=== PATIENT | female | born 1945 | race Caucasian/White ===

== ENCOUNTER → 2017-04-18 | Outpatient (REF) | payer MEDICARE, BC ==
[2017-04-18 12:51] LABS: MEAN CORPUSCULAR HEMOGLOBIN 31.7 pg (27.0-33.0); MEAN CORPUSCULAR HGB CONC 33.8 g/dl (32.0-36.5); MEAN CORPUSCULAR VOLUME 93.8 fl (80.0-96.0); RED CELL DISTRIBUTION WIDTH 13.2 % (11.5-14.5)
[2017-04-18 14:43] LABS: ALBUMIN 3.7 GM/DL (3.2-5.2); ALBUMIN/GLOBULIN RATIO 1.09 (1.00-1.93); ALKALINE PHOSPHATASE 111 U/L (45-117); ALT/SGPT 32 U/L (12-78); ANION GAP 9 MEQ/L (8-16); AST/SGOT 20 U/L (15-37); BILIRUBIN,TOTAL 0.4 MG/DL (0.2-1.0); BLOOD UREA NITROGEN 14 MG/DL (7-18); CALCIUM LEVEL 9.1 MG/DL (8.8-10.2); CARBON DIOXIDE LEVEL 25 MEQ/L (21-32); CHLORIDE LEVEL 107 MEQ/L (98-107); CHOLESTEROL LEVEL 304 MG/DL (<200); CREATININE FOR GFR 1.18 MG/DL (0.55-1.02); GLOMERULAR FILTRATION RATE 48.2 (>39); GLUCOSE, FASTING 93 MG/DL (83-110); POTASSIUM SERUM 4.2 MEQ/L (3.5-5.1); SODIUM LEVEL 141 MEQ/L (136-145); TOTAL PROTEIN 7.1 GM/DL (6.4-8.2); TRIGLYCERIDES LEVEL 477 MG/DL (<150)
== END ==
LOC: M SFHCPLAZ 10:00
PROVIDERS: ATTEND Family Medicine
DX: N18.3 Chronic kidney disease, stage 3 (moderate) (principal); I12.9 Hypertensive chronic kidney disease with stage 1 through stage 4 chronic kidney disease, or unspecified chronic kidney disease; E78.5 Hyperlipidemia, unspecified; E55.9 Vitamin D deficiency, unspecified

== ENCOUNTER → 2017-05-03 | Outpatient (CLI) | payer MEDICARE, BC ==
--- NOTE | 2017-05-03 15:31 | REP ---
Clinical: Followup renal cyst. Comparison: 08/11/2014, 03/11/2016. Technique: Real time kelly scale ultrasound examination using curved array transducer. Findings: The bilateral kidneys are relatively normal in contour, size, echogenicity, and reniform shape without hydronephrosis, nephrolithiasis, or mass lesion. Right kidney measures 9.3 x 5.2 x 3.3 cm and includes a 1.7 x 1.0 x 1.6 cm cyst in the midpole which is only minimally decreased in size from prior examination. The previously identified large lower pole right renal cyst on 2015 is no longer visible. The left kidney measures 10.6 x 4.4 x 4.4 cm without cyst. The bladder is incompletely distended and grossly unremarkable. Impression: Single right renal cyst minimally decreased in size compared to prior examination. Signed by Miller Hermosillo MD 05/03/2017 03:22 P
== END ==
LOC: M RAD 14:08
PROVIDERS: ATTEND Family Medicine
DX: N28.1 Cyst of kidney, acquired (principal)

== ENCOUNTER → 2017-05-15 | Outpatient (CLI) | payer MEDICARE, BC ==
--- NOTE | 2017-05-15 14:29 | REPMRS ---
Patient History The patient states she has not had a clinical breast exam in over a year. Patient is postmenopausal and has history of other cancer at age 44. Family history of ovarian cancer in paternal aunt and breast cancer in paternal aunt at age 50 or over. Took hormonal contraceptives for 5 years. Took estrogen for 20 years. Took progesterone for 20 years. Digital Woman Screen Mammo: May 15, 2017 - Exam #: [id number] Bilateral CC and MLO view(s) were taken. Technologist: Izabel Foster, Technologist Prior study comparison: April 05, 2016, digital woman screen mammo performed at [facility]. March 25, 2015, digital woman screen mammo performed at [facility]. October 28, 2013, bilateral bilat screen digital mammo, performed at [facility] ([facility]). FINDINGS: The breast tissue is heterogeneously dense. This may lower the sensitivity of mammography. There is a moderate amount of heterogeneously dense fibroglandular tissue which is fairly symmetric. There is no interval development of dominant mass, architectural distortion, or clustered microcalcification typical of malignancy. There has been no change in the appearance of the mammogram from the prior studies. ASSESSMENT: BI-RADS/ACR category 1 mammogram. Negative. Recommendation Routine screening mammogram of both breasts in 1 year (for women over age 40). This mammogram was interpreted with the aid of an FDA-approved computer-aided dectection system. Electronically Signed By: Chadwick Palencia MD 05/15/17 [id number]
== END ==
LOC: M WHC 12:58
PROVIDERS: ATTEND Family Medicine
DX: Z12.31 Encounter for screening mammogram for malignant neoplasm of breast (principal); R92.8 Other abnormal and inconclusive findings on diagnostic imaging of breast; Z78.0 Asymptomatic menopausal state; Z92.0 Personal history of contraception; Z79.890 Hormone replacement therapy

== ENCOUNTER → 2017-10-09 | Outpatient (REF) | payer MEDICARE, BC | LOC: M SFHCADAM 10:24 | PROVIDERS: ATTEND Family Medicine | DX: E78.5 Hyperlipidemia, unspecified (principal); Z79.899 Other long term (current) drug therapy ==

== ENCOUNTER → 2017-10-19 | Outpatient (REF) | payer MEDICARE, BC ==
[2017-10-19 20:32] LABS: ALBUMIN/GLOBULIN RATIO 1.18 (1.00-1.93); ALKALINE PHOSPHATASE 102 U/L (45-117); ALT/SGPT 27 U/L (12-78); ANION GAP 7 MEQ/L (8-16); AST/SGOT 19 U/L (7-37); BILIRUBIN,TOTAL 0.3 MG/DL (0.2-1.0); BLOOD UREA NITROGEN 18 MG/DL (7-18); CALCIUM LEVEL 9.4 MG/DL (8.8-10.2); CARBON DIOXIDE LEVEL 28 MEQ/L (21-32); CHLORIDE LEVEL 107 MEQ/L (98-107); CHOLESTEROL LEVEL 318 MG/DL (<200); CREATININE FOR GFR 1.16 MG/DL (0.55-1.02); GLOMERULAR FILTRATION RATE 49.2 (>39); GLUCOSE, FASTING 91 MG/DL (83-110); POTASSIUM SERUM 4.2 MEQ/L (3.5-5.1); SODIUM LEVEL 142 MEQ/L (136-145); TOTAL PROTEIN 7.4 GM/DL (6.4-8.2); TRIGLYCERIDES LEVEL 527 MG/DL (<150); URIC ACID 10.1 MG/DL (2.6-6.0)
== END ==
LOC: M SFHCADAM 14:03
PROVIDERS: ATTEND Family Medicine
DX: E78.5 Hyperlipidemia, unspecified (principal); M35.00 Sjogren syndrome, unspecified

== ENCOUNTER → 2018-02-26 | Outpatient (CLI) | payer MEDICARE, BC ==
[2018-02-26 18:16] LABS: ALBUMIN 3.9 GM/DL (3.2-5.2); ALBUMIN/GLOBULIN RATIO 1.03 (1.00-1.93); ALKALINE PHOSPHATASE 128 U/L (45-117); ALT/SGPT 27 U/L (12-78); ANION GAP 11 MEQ/L (8-16); AST/SGOT 20 U/L (7-37); BILIRUBIN,TOTAL 0.4 MG/DL (0.2-1.0); BLOOD UREA NITROGEN 11 MG/DL (7-18); CALCIUM LEVEL 9.6 MG/DL (8.8-10.2); CARBON DIOXIDE LEVEL 27 MEQ/L (21-32); CHLORIDE LEVEL 106 MEQ/L (98-107); CHOLESTEROL LEVEL 232 MG/DL (<200); CHOLESTEROL RISK RATIO 4.142 (<5); CREATININE FOR GFR 1.14 MG/DL (0.55-1.30); GLUCOSE, FASTING 99 MG/DL (70-100); HDL CHOLESTEROL 56 MG/DL (>40); NON-HDL-C 176 MG/DL; POTASSIUM SERUM 4.2 MEQ/L (3.5-5.1); SODIUM LEVEL 144 MEQ/L (136-145); TOTAL PROTEIN 7.7 GM/DL (6.4-8.2); TRIGLYCERIDES LEVEL 300 MG/DL (<150); URIC ACID 8.8 MG/DL (2.6-6.0)
== END ==
LOC: M SMT 12:06
DX: E78.5 Hyperlipidemia, unspecified (principal); M10.9 Gout, unspecified
CPT/HCPCS: 84550

== ENCOUNTER 2018-04-10 11:18 | Emergency (ER) | payer MEDICARE, BC ==
[2018-04-10] MEDS: NORCO, ANEXSIA 5/325MG TABLET (HYDROcodone/ACETAMINOPHEN) PO (12:49)
[2018-04-10 13:04] LABS: BASO # 0.1 10^3/uL (0.0-0.2); BASO % 0.7 % (0.0-1.0); EOS # 0.6 10^3/uL (0.0-0.50); EOS % 3.7 % (0.0-3.0); HEMATOCRIT 42.5 % (36.0-47.0); HEMOGLOBIN 14.1 g/dl (12.0-15.5); IMMATURE GRANULOCYTE % 0.4 % (0-3.0); LYMPH # 1.8 10^3/uL (1.5-4.5); LYMPH % 11.2 % (24.0-44.0); MEAN CORPUSCULAR HEMOGLOBIN 30.8 pg (27.0-33.0); MEAN CORPUSCULAR HGB CONC 33.2 g/dl (32.0-36.5); MEAN CORPUSCULAR VOLUME 92.8 fl (80.0-96.0); MONO # 1.1 10^3/uL (0.0-0.8); MONO % 6.8 % (0.0-5.0); NEUTROPHILS # 12.6 10^3/uL (1.8-7.7); NEUTROPHILS % 77.2 % (36.0-66.0); PLATELET COUNT, AUTOMATED 324 10^3/uL (150-450); RED BLOOD COUNT 4.58 10^6/uL (4.00-5.40); RED CELL DISTRIBUTION WIDTH 13.2 % (11.5-14.5); WHITE BLOOD COUNT 16.4 10^3/uL (4.0-10.0)
[2018-04-10 13:30] LABS: ANION GAP 6 MEQ/L (8-16); BLOOD UREA NITROGEN 12 MG/DL (7-18); C REACTIVE PROTEIN QUANTITATIV 4.42 MG/DL (0.00-0.30); CALCIUM LEVEL 10.2 MG/DL (8.8-10.2); CARBON DIOXIDE LEVEL 28 MEQ/L (21-32); CHLORIDE LEVEL 105 MEQ/L (98-107); CREATININE FOR GFR 1.25 MG/DL (0.55-1.30); GLUCOSE, FASTING 104 MG/DL (70-100); POTASSIUM SERUM 4.4 MEQ/L (3.5-5.1); SODIUM LEVEL 139 MEQ/L (136-145); URIC ACID 10.2 MG/DL (2.6-6.0)
[2018-04-10 13:33] LABS: ERYTHROCYTE SEDIMENTATION RATE 34 mm/hr (0-30)
== END 2018-04-10 14:27 | disposition home or self-care (01) ==
LOC: M ED 11:18
DX: L03.115 Cellulitis of right lower limb (principal); R79.89 Other specified abnormal findings of blood chemistry; E78.00 Pure hypercholesterolemia, unspecified; I10 Essential (primary) hypertension; K21.9 Gastro-esophageal reflux disease without esophagitis; Z86.19 Personal history of other infectious and parasitic diseases; Z79.82 Long term (current) use of aspirin; Z79.899 Other long term (current) drug therapy; Z88.8 Allergy status to other drugs, medicaments and biological substances; Z88.0 Allergy status to penicillin; Z88.2 Allergy status to sulfonamides; Z88.1 Allergy status to other antibiotic agents
CPT/HCPCS: 84550

== ENCOUNTER → 2018-05-11 | Outpatient (REF) | payer MEDICARE, BC ==
[2018-05-11 14:15] LABS: BASO # 0.1 10^3/uL (0.0-0.2); BASO % 1.1 % (0.0-1.0); EOS # 0.6 10^3/uL (0.0-0.50); EOS % 6.6 % (0.0-3.0); HEMATOCRIT 39.5 % (36.0-47.0); HEMOGLOBIN 12.9 g/dl (12.0-15.5); IMMATURE GRANULOCYTE % 0.6 % (0-3.0); LYMPH % 23.9 % (24.0-44.0); MEAN CORPUSCULAR HEMOGLOBIN 30.8 pg (27.0-33.0); MEAN CORPUSCULAR HGB CONC 32.7 g/dl (32.0-36.5); MEAN CORPUSCULAR VOLUME 94.3 fl (80.0-96.0); MONO # 0.6 10^3/uL (0.0-0.8); MONO % 7.5 % (0.0-5.0); NEUTROPHILS # 5.2 10^3/uL (1.8-7.7); NEUTROPHILS % 60.3 % (36.0-66.0); PLATELET COUNT, AUTOMATED 271 10^3/uL (150-450); RED BLOOD COUNT 4.19 10^6/uL (4.00-5.40); WHITE BLOOD COUNT 8.5 10^3/uL (4.0-10.0)
[2018-05-11 14:40] LABS: ALBUMIN 3.7 GM/DL (3.2-5.2); ALBUMIN/GLOBULIN RATIO 1.12 (1.00-1.93); ALKALINE PHOSPHATASE 123 U/L (45-117); ALT/SGPT 27 U/L (12-78); ANION GAP 7 MEQ/L (8-16); AST/SGOT 19 U/L (7-37); BILIRUBIN,TOTAL 0.5 MG/DL (0.2-1.0); BLOOD UREA NITROGEN 7 MG/DL (7-18); CALCIUM LEVEL 9.9 MG/DL (8.8-10.2); CARBON DIOXIDE LEVEL 28 MEQ/L (21-32); CHLORIDE LEVEL 106 MEQ/L (98-107); CHOLESTEROL LEVEL 218 MG/DL (<200); CHOLESTEROL RISK RATIO 3.892 (<5); CREATININE FOR GFR 1.14 MG/DL (0.55-1.30); GLUCOSE, FASTING 81 MG/DL (70-100); HDL CHOLESTEROL 56 MG/DL (>40); LDL CHOLESTEROL 104.4 MG/DL (<100); NON-HDL-C 162 MG/DL; POTASSIUM SERUM 4.4 MEQ/L (3.5-5.1); SODIUM LEVEL 141 MEQ/L (136-145); TRIGLYCERIDES LEVEL 288 MG/DL (<150); URIC ACID 4.8 MG/DL (2.6-6.0)
== END ==
LOC: M SFHCPLAZ 10:53
DX: R76.8 Other specified abnormal immunological findings in serum (principal); N18.3 Chronic kidney disease, stage 3 (moderate); M10.9 Gout, unspecified; E78.5 Hyperlipidemia, unspecified
CPT/HCPCS: 84550

== ENCOUNTER → 2018-05-15 | Outpatient (CLI) | payer MEDICARE, BC | LOC: M WHC 12:48 | DX: Z12.31 Encounter for screening mammogram for malignant neoplasm of breast (principal) | CPT/HCPCS: 77067 ==

== ENCOUNTER → 2018-10-10 | Outpatient (CLI) | payer MEDICARE, BC ==
[2018-10-10 12:21] LABS: HEMATOCRIT 38.9 % (36.0-47.0); HEMOGLOBIN 12.7 g/dl (12.0-15.5); MEAN CORPUSCULAR HEMOGLOBIN 30.6 pg (27.0-33.0); MEAN CORPUSCULAR HGB CONC 32.6 g/dl (32.0-36.5); MEAN CORPUSCULAR VOLUME 93.7 fl (80.0-96.0); PLATELET COUNT, AUTOMATED 268 10^3/uL (150-450); RED BLOOD COUNT 4.15 10^6/uL (4.00-5.40); RED CELL DISTRIBUTION WIDTH 12.8 % (11.5-14.5); WHITE BLOOD COUNT 9.5 10^3/uL (4.0-10.0)
[2018-10-10 13:25] LABS: ANION GAP 9 MEQ/L (8-16); BLOOD UREA NITROGEN 10 MG/DL (7-18); CALCIUM LEVEL 9.6 MG/DL (8.8-10.2); CARBON DIOXIDE LEVEL 26 MEQ/L (21-32); CHLORIDE LEVEL 106 MEQ/L (98-107); CREATININE FOR GFR 1.24 MG/DL (0.55-1.30); GLOMERULAR FILTRATION RATE 45.4 (>39); GLUCOSE, FASTING 100 MG/DL (70-100); POTASSIUM SERUM 4.1 MEQ/L (3.5-5.1); SODIUM LEVEL 141 MEQ/L (136-145)
== END ==
LOC: M WUC 09:56
DX: N18.3 Chronic kidney disease, stage 3 (moderate) (principal); M10.9 Gout, unspecified
CPT/HCPCS: 84550

== ENCOUNTER → 2019-04-19 | Outpatient (REF) | payer MEDICARE, BC ==
[~2019-04-19] MED LIST: ACET500T15 PO; ASPI-1 PO; ATOR1TAB19 PO; BIOT50004 PO; BISO10TA13 PO; D 50CAP PO; HYDR-3715 PO; INDO50CA11 PO; KEFL500C17 PO; NATU400T PO; PROBCAP4 PO; PROT1TAB2 PO; REST0.05 OP; SPIR50TA4 PO; VITA100T14 PO; VITA1TAB23 PO; ZANTTAB PO
[2019-04-19 13:32] LABS: HEMATOCRIT 41.1 % (36.0-47.0); HEMOGLOBIN 13.2 g/dl (12.0-15.5); MEAN CORPUSCULAR HEMOGLOBIN 30.3 pg (27.0-33.0); MEAN CORPUSCULAR HGB CONC 32.1 g/dl (32.0-36.5); MEAN CORPUSCULAR VOLUME 94.5 fl (80.0-96.0); PLATELET COUNT, AUTOMATED 309 10^3/uL (150-450); RED BLOOD COUNT 4.35 10^6/uL (4.00-5.40); WHITE BLOOD COUNT 10.7 10^3/uL (4.0-10.0)
[2019-04-19 13:54] LABS: ALBUMIN 4.1 GM/DL (3.2-5.2); BILIRUBIN,TOTAL 0.8 MG/DL (0.2-1.0); CALCIUM LEVEL 10.4 MG/DL (8.8-10.2); CHOLESTEROL RISK RATIO 3.468 (<5); CREATININE FOR GFR 1.36 MG/DL (0.55-1.30); GLOMERULAR FILTRATION RATE 40.7 (>39); POTASSIUM SERUM 4.1 MEQ/L (3.5-5.1); TOTAL PROTEIN 7.8 GM/DL (6.4-8.2)
[2019-04-19 14:02] LABS: TOTAL 25(OH) VITAMIN D 69.2 NG/ML (30.0-100.0)
== END ==
LOC: M SFHCPLAZ 10:27
PROVIDERS: ATTEND Family Medicine
DX: N18.3 Chronic kidney disease, stage 3 (moderate) (principal); E78.5 Hyperlipidemia, unspecified; E55.9 Vitamin D deficiency, unspecified

== ENCOUNTER → 2019-05-21 | Outpatient (REF) | payer MEDICARE, BC ==
[~2019-05-21] MED LIST changes: -INDO50CA11 PO; +INDO50CA91 PO; +ZANT150T40 PO; -ZANTTAB PO
[2019-05-21 13:30] LABS: CALCIUM LEVEL 10.4 MG/DL (8.8-10.2); CREATININE FOR GFR 1.1 MG/DL (0.55-1.30)
== END ==
LOC: M SFHCADAM 10:06
PROVIDERS: ATTEND Family Medicine
DX: N18.3 Chronic kidney disease, stage 3 (moderate) (principal)

== ENCOUNTER → 2019-05-28 | Outpatient (CLI) | payer MEDICARE, BC ==
[~2019-05-28] MED LIST changes: +INDO50CA11 PO; -INDO50CA91 PO
--- NOTE | 2019-05-28 12:14 | REP ---
Clinical: Renal cyst. Technique: Real time kelly scale ultrasound examination using curved array transducer. Comparison: 05/03/2017. Findings: Kidneys are normal in reniform shape and demonstrate increased central sinus fat consistent with chronic medical renal disease. The right kidney measures 9.2 x 5.2 x 4.1 cm and includes 2.0 x 1.0 x 1.2 cm mid pole cyst without nephrolithiasis, hydronephrosis, perinephric stranding or mass lesion. The left kidney measures 9.8 x 5.1 x 4.5 cm without nephrolithiasis, hydronephrosis, cystic or mass lesion. Bladder is grossly unremarkable. Impression: 1. A 2 cm cyst in the right kidney is identified and appears relatively stable when compared to 05/03/2017. 2. Evidence to suggest chronic age-related medical renal disease. Electronically Signed by Miller Hermosillo MD 05/28/2019 12:06 P
== END ==
LOC: M RAD 11:25
PROVIDERS: ATTEND Family Medicine
DX: N28.1 Cyst of kidney, acquired (principal)

== ENCOUNTER → 2019-06-11 | Outpatient (CLI) | payer MEDICARE, BC ==
[~2019-06-11] MED LIST changes: -INDO50CA11 PO; +INDO50CA91 PO
--- NOTE | 2019-06-11 14:02 | REPMRS ---
Patient History The patient states she has not had a clinical breast exam in over a year. Family history of breast cancer at age 50 or over in paternal aunt, ovarian cancer in paternal aunt. Took hormonal contraceptives for 5 years. Took estrogen for 20 years. Took progesterone for 20 years. Digital Woman Screen Mammo: June 11, 2019 - Exam #: [id number] Bilateral CC and MLO view(s) were taken. Technologist: Stacey Armenta, Technologist Prior study comparison: May 15, 2018, bilateral digital woman screen mammo performed at [facility]. May 15, 2017, digital woman screen mammo performed at [facility]. April 05, 2016, digital woman screen mammo performed at [facility]. FINDINGS: The breast tissue is heterogeneously dense. This may lower the sensitivity of mammography. There is a moderate amount of heterogeneously dense fibroglandular tissue which is fairly symmetric. There is no interval development of dominant mass, architectural distortion, or grouped microcalcification typical of malignancy. There has been no change in the appearance of the mammogram from the prior studies. 3-D tomosynthesis shows no additional findings. Assessment: BI-RADS/ACR category 1 mammogram. Negative Mammogram. Recommendation Routine screening mammogram of both breasts in 1 year (for women over age 40). This patient's Lifetime Breast Cancer RIsk is estimated at 3.6 %. This mammogram was interpreted with the aid of an FDA-approved computer-aided dectection system. Electronically Signed By: Chadwick Palencia MD 06/11/19 [id number]
== END ==
LOC: M WHC 11:21
PROVIDERS: ATTEND Family Medicine
DX: Z12.31 Encounter for screening mammogram for malignant neoplasm of breast (principal); Z92.0 Personal history of contraception; Z92.23 Personal history of estrogen therapy; Z92.29 Personal history of other drug therapy

== ENCOUNTER → 2019-08-12 | Outpatient (CLI) | payer MEDICARE, BC ==
--- NOTE | 2019-08-12 09:19 | REP ---
Right upper quadrant sonography: History: Right upper quadrant abdominal pain. Comparison study: Comparison renal sonography May 03, 2017. Findings: Scanning through the right upper quadrant of the abdomen demonstrates a normal sized, thin-walled gallbladder without evidence of stone or polyp. Common bile duct is normal measuring 0.7 cm in greatest diameter. No focal liver lesion is seen. Liver size is normal. No pancreatic abnormality is observed. There is a 1.3 cm anechoic lesion in the anterior cortex lower pole right kidney with an echogenic anterior border. This is consistent with a complex cyst. It is essentially stable from May 03, 2017 prior study. No other right renal abnormality is seen. There is no evidence of ascites. The right kidney measures 9.1 x 4.2 x 3.3 cm. Impression: 1.3 cm complex cyst seen in the anterior border lower pole right kidney, stable since April 2017 . Otherwise negative right upper quadrant sonography. Electronically Signed by Pb Palencia MD 08/12/2019 09:10 A
== END ==
LOC: M RAD 08:04
PROVIDERS: ATTEND Family Medicine
DX: R10.11 Right upper quadrant pain (principal)

== ENCOUNTER → 2019-08-20 | Outpatient (CLI) | payer MEDICARE, BC ==
--- NOTE | 2019-08-20 15:26 | REP ---
REASON FOR EXAM: History of right renal cyst seen on right upper quadrant ultrasound examination of 08/12/2019, which was reviewed. The lack of intravenous contrast on today's exam significantly decreases the sensitivity of the exam, especially when determining whether or not there is an enhancing cancer. Prior ultrasound examination of the kidneys of 05/28/2019 was also reviewed. That examination showed a cyst in the right kidney felt to be stable when compared to an older exam of 05/03/2017. In the left lung base, there is a 4 mm size nodule. This represents a change from lung base images obtained on the prior CT of 08/23/2010. Limited evaluation of the solid intra-abdominal organs and gallbladder show no gross abnormalities. Limited evaluation of the pancreas, adrenal glands, and left kidney show no gross abnormalities. In the right kidney, there is a 2 cm sized mass the density of which has Hounsfield unit readings greater than that of water density. In addition, there are varying degrees of peripheral calcification. This represents a significant change from the prior CT when a large right renal cyst measuring 9 cm was present. Adjacent to the cyst, there is irregular renal cortical thinning. Limited evaluation of the abdominal aorta and para-aortic regions show no gross abnormalities. There is mild calcific atherosclerotic change seen in the abdominal aorta. Limited evaluation of the bowel loops and their mesenteries show no gross abnormalities. Scattered colonic diverticula are noted without pericolonic fatty infiltration. The transverse colon is mildly to moderately redundant. There is no free fluid or free air in the abdomen. There is no evidence of an intra-abdominal mass or adenopathy. CT PELVIS: There is sigmoid colon diverticulosis. Multiple diverticula have inspissated barium within them. There is no abnormal pericolonic fatty infiltration. No free fluid or free air is seen in the pelvis. There is no evidence of a pelvic mass or adenopathy. Bone window technique throughout the entire exam shows the osseous structures to be within normal limits for the patient's age. IMPRESSION: 1. There is a nodule in the left lung lower lobe as described above. According to the revised Fleischner society criteria, diagnostic contrast-enhanced CT examination of the chest is recommended. 2. Significant change in the appearance of the right renal cyst seen on the prior CT of 08/23/2010. Although the finding today likely represents a benign change with cyst decompression and chunky cyst wall calcification, the possibility of malignant alteration cannot be ruled out. I cannot assign a Bosniak classification since no intravenous contrast was administered. Contrast-enhanced CT examination is recommended. 3. Colonic diverticulosis and other findings as described above. Electronically Signed by Antwon Helton DO 08/20/2019 04:22 P
== END ==
LOC: M RAD 10:54
PROVIDERS: ATTEND Family Medicine
DX: K57.30 Diverticulosis of large intestine without perforation or abscess without bleeding (principal); R91.1 Solitary pulmonary nodule; N28.1 Cyst of kidney, acquired; R10.11 Right upper quadrant pain

== ENCOUNTER → 2019-09-03 | Outpatient (CLI) | payer MEDICARE, BC ==
[2019-09-03 12:45] LABS: CALCIUM LEVEL 10.5 MG/DL (8.8-10.2); CREATININE FOR GFR 1.15 MG/DL (0.55-1.30); GLOMERULAR FILTRATION RATE 49.4 (>39); POTASSIUM SERUM 3.7 MEQ/L (3.5-5.1)
== END ==
LOC: M LAB 11:16
PROVIDERS: ATTEND Physician Assistant
DX: N18.3 Chronic kidney disease, stage 3 (moderate) (principal)

== ENCOUNTER → 2019-09-03 | Outpatient (POV) | payer MEDICARE, BC ==
[~2019-09-03] VITALS: Ht 154.9 cm; Wt 64.1 kg
[~2019-09-03] MED LIST changes: +ceFAZolin 1GM INJ (J0690 PER 500MG) As Ordered ONE; +diphenhydrAMINE INJ 50MG/ML VIAL (J1200) As Ordered ONE
[2019-09-03 10:45] VITALS: BP 159/72
--- NOTE | 2019-09-04 09:33 | IRCOV ---
[facility] IR Consult Office Visit IR Consult Office Visit DATE: Sep 03, 2019 REASON FOR CONSULTATION/CHIEF COMPLAINT: Right renal cyst. HISTORY OF PRESENT ILLNESS: 74-year-old female with prior history of right renal cyst which was aspirated in January 2014. She describes at that time it was grapefruit sized. This reaccumulated to a tennis ball size cyst which was was then re-aspirated in the winter of 2013 and sclerosed. A drain was left in for 5 days after which it was removed. Patient denies any new pain or pressure. No hematuria. No fevers or chills. No weight loss. Patient referred by Dr. Hernandez for evaluation. ALLERGIES: Please see below. HOME MEDICATIONS: Please see below. PAST MEDICAL HISTORY: Hyperlipidemia GERD C. 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 SOCIAL HISTORY: Denies smoking, alcohol or drugs. REVIEW OF SYSTEMS: Otherwise negative. PHYSICAL EXAMINATION: VITAL SIGNS: Please see below. GENERAL APPEARANCE: Appears well. Comfortable at rest. HEENT: No scleral icterus. RESPIRATORY: Symmetric breath sounds. CARDIOVASCULAR: Normal rate. ABDOMEN: Soft nontender. No tenderness over the flanks. EXTREMITIES: Moving all 4 extremities. NEUROLOGICAL: Alert and oriented. PSYCHIATRIC: Appropriate to circumstance. LABORATORY DATA: 04/19/2019 Hemoglobin 13.2 hematocrit 41.1 WBC 10.7 platelets 309 09/03/2019 sodium 142 potassium 3.7B UN 10 creatinine 1.15 GFR 49.4 total bilirubin 0.8 AST 31 ALTs 32 ALP 124 Imaging: I personally reviewed the noncontrast CT of the abdomen from 08/20/2019. There is a collapsed cyst, exophytic, arising off the right kidney which now measures 1.3 cm. There are coarse chunky calcifications associated with prior aspiration and sclerosis. No hydronephrosis. No cysts in the left kidney. ASSESSMENT/PLAN: Doing well 5 years status post right renal cyst aspiration and sclerosis. No significant reaccumulation of the cyst. No new cysts. No intervention recommended at present. I spent 30 minutes in consultation with the patient. Thank you for this referral. Allergies Coded Allergies: MS - Alendronate (Unverified Adverse Reaction, Mild, GI UPSET, 01/30/13) MS - Erythromycin (Unverified Adverse Reaction, Mild, GI USPET, 01/30/13) MS - Esomeprazole (Unverified Adverse Reaction, Mild, EDEMA, 01/30/13) MS - Lansoprazole (Unverified Adverse Reaction, Mild, EDEMA, 01/30/13) MS - Lisinopril (Unverified Adverse Reaction, Mild, DIZZY, 01/30/13) MS - Nitrofurantoin (Unverified Adverse Reaction, Mild, CDIFF-COLITIS , 01/30/13) MS - Penicillins (Unverified Adverse Reaction, Mild, GI UPSET, 01/30/13) MS - Penicillins Cross Reactors (Unverified Adverse Reaction, Mild, GI UPSET, 01/30/13) MS - Raloxifene (Unverified Adverse Reaction, Mild, HOT FLASHES, 01/30/13) MS - Sulfa Drugs (Unverified Adverse Reaction, Mild, GI UPSET, 01/30/13) MS - Sulfa Drugs Cross Reactors (Unverified Adverse Reaction, Mild, GI UPSET, 01/30/13) MS - Tetracycline (Unverified Adverse Reaction, Mild, BLURRY VISION, 01/30/13) Home Medications Scheduled Ascorbic Acid (Vitamin C), 500 MG PO TID, (Reported) Atorvastatin Calcium (Atorvastatin Calcium), 10 MG PO DAILY, (Reported) Biotin (Biotin), 5,000 MCG PO DAILY, (Reported) Bisoprolol Fumarate (Bisoprolol Fumarate), 5 MG PO DAILY, (Reported) Cephalexin (Keflex), 500 MG PO QID Lactobacillus Acidophilus (Probiotic), 1 CAP PO DAILY, (Reported) Pantoprazole Sodium (Protonix), 40 MG PO DAILY, (Reported) Spironolactone (Spironolactone), 50 MG PO DAILY, (Reported) Scheduled PRN Hydrocodone/Acetaminophen (Hydrocodone-Acetamin 5-325 mg), 1 TAB PO Q6H PRN for PAIN Indomethacin (Indomethacin), 50 MG PO TIDP PRN for PAIN SCALE 1-5 Miscellaneous Medications Acetaminophen (Acetaminophen), 500 MG PO, (Reported) Alpha Tocopheryl Acid Succinat (Vitamin E), 400 UNIT PO, (Reported) Aspirin (Aspirin), 325 MG PO, (Reported) Cholecalciferol (Vitamin D3) (Vitamin D3), 5,000 UNIT PO, (Reported) Cyclosporine (Restasis), 0.05 % OP, (Reported) Pyridoxine HCl (Vitamin B6) (Vitamin B-6), 100 MG PO, (Reported) Ranitidine Hcl (Zantac), 1 TAB PO, (Reported) VS, I&O, 24H, Fishbone Vital Signs/I&O Vital Signs Date Time Temp Pulse Resp B/P (MAP) Pulse Ox O2 Delivery O2 Flow Rate FiO2 09/03/19 10:45 98.2 54 16 159/72 (101) 98 Room Air NOE DAWN MD Sep 04, 2019 09:33
== END ==
LOC: M IRPOV 10:38
PROVIDERS: ATTEND Radiology Diagnostic Radiology
DX: N18.3 Chronic kidney disease, stage 3 (moderate) (principal); I12.9 Hypertensive chronic kidney disease with stage 1 through stage 4 chronic kidney disease, or unspecified chronic kidney disease; E78.5 Hyperlipidemia, unspecified; K21.9 Gastro-esophageal reflux disease without esophagitis; Z90.710 Acquired absence of both cervix and uterus
CPT/HCPCS: J0690; J1200; 80048; 36415; G0463

== ENCOUNTER → 2019-09-04 | Outpatient (CLI) | payer MEDICARE, BC ==
[~2019-09-04] MED LIST changes: +ISOVUE-370 76% 100ML VIAL (Q9967) As Ordered ONE; -ceFAZolin 1GM INJ (J0690 PER 500MG) As Ordered ONE; -diphenhydrAMINE INJ 50MG/ML VIAL (J1200) As Ordered ONE
--- NOTE | 2019-09-04 11:00 | REP ---
CT chest with IV contrast: History: Pulmonary nodule. Comparison CT study of the abdomen August 20, 2019 shows a small nodule in the left lower lobe of the lung. No comparison chest CT. CT contrast dose: 75 mL of intravenous Isovue [address] findings: There is good opacification of the pulmonary arterial tree and the thoracic aorta. There is no evidence of aneurysm, dissection, or pulmonary embolism. No hilar or mediastinal mass or adenopathy is observed. No pleural or pericardial effusion is seen. No adrenal lesion is observed. The visualized upper abdominal structures are unremarkable except for mild fatty infiltration of the liver. Lung window settings demonstrate a 4 mm nodule in the left lower lobe corresponding to the CT finding on abdominal CT. This is not visibly calcified. This is seen on page 66 of 104 in series 201 of today's study. There is a tiny 4 mm noncalcified left upper lobe nodule visible on page 53. There is a 2 mm indeterminate nodule in the right lower lobe posterolateral pleural sulcus seen on page 69. No other pulmonary nodule is appreciated. No lung mass lesion is seen. No bony destructive lesion is observed. Impression: There are two left-sided pulmonary nodules each 4 mm in diameter. If this patient is considered at risk for lung cancer, a repeat chest CT study can be performed in 1 year. Mild fatty infiltration of the liver. Otherwise no active disease. Electronically Signed by Pb Palencia MD 09/04/2019 11:35 A
== END ==
LOC: M RAD 08:58
PROVIDERS: ATTEND Family Medicine
DX: R91.8 Other nonspecific abnormal finding of lung field (principal); R91.1 Solitary pulmonary nodule
CPT/HCPCS: 71260; Q9967

== ENCOUNTER → 2020-04-14 | Outpatient (REF) | payer MEDICARE, BC ==
[~2020-04-14] MED LIST changes: -ISOVUE-370 76% 100ML VIAL (Q9967) As Ordered ONE; -VITA1TAB23 PO; +VITA250T20 PO
[2020-04-14 12:12] LABS: HEMATOCRIT 39.5 % (36.0-47.0); HEMOGLOBIN 12.7 g/dl (12.0-15.5); MEAN CORPUSCULAR HGB CONC 32.2 g/dl (32.0-36.5); MEAN CORPUSCULAR VOLUME 96.3 fl (80.0-96.0); PLATELET COUNT, AUTOMATED 307 10^3/uL (150-450); WHITE BLOOD COUNT 9.9 10^3/uL (4.0-10.0)
[2020-04-14 13:32] LABS: ALBUMIN 3.9 GM/DL (3.2-5.2); BILIRUBIN,TOTAL 0.7 MG/DL (0.2-1.0); CHOLESTEROL RISK RATIO 4.196 (<5); CREATININE FOR GFR 1.31 MG/DL (0.55-1.30); GLOMERULAR FILTRATION RATE 42.4 (>39); TOTAL PROTEIN 7.5 GM/DL (6.4-8.2)
== END ==
LOC: M PLALAB 10:41
PROVIDERS: ATTEND Family Medicine
DX: N18.3 Chronic kidney disease, stage 3 (moderate) (principal); I11.9 Hypertensive heart disease without heart failure; E78.5 Hyperlipidemia, unspecified

== ENCOUNTER → 2020-06-15 | Outpatient (CLI) | payer MEDICARE, BC ==
--- NOTE | 2020-07-01 08:47 | REPMRS ---
Patient History The patient states she has not had a clinical breast exam in over a year. Patient is postmenopausal and has history of other cancer at age 44. Family history of breast cancer at age 50 or over in paternal aunt, ovarian cancer in paternal aunt. Took hormonal contraceptives for 5 years. Took estrogen for 20 years. Took progesterone for 20 years. Digital Woman Screen Mammo: June 15, 2020 - Exam #: [id number] Bilateral CC and MLO view(s) were taken. Technologist: Sondra Olivarez, Technologist Prior study comparison: June 11, 2019, bilateral digital woman screen mammo, performed at [facility]. May 15, 2018, bilateral digital woman screen mammo, performed at [facility]. May 15, 2017, digital woman screen mammo, performed at [facility]. FINDINGS: The breast tissue is heterogeneously dense. This may lower the sensitivity of mammography. The Volpara volumetric breast density category is: C. There is a moderate amount of heterogeneously dense fibroglandular tissue which is fairly symmetric. There is no interval development of dominant mass, architectural distortion, or grouped microcalcification typical of malignancy. There has been no change in the appearance of the mammogram from the prior studies. 3-D tomosynthesis shows no additional findings. Assessment: BI-RADS/ACR category 1 mammogram. Negative Mammogram. Recommendation Routine screening mammogram of both breasts in 1 year (for women over age 40). This patient's Lifetime Breast Cancer RIsk is estimated at 3.3 %. This mammogram was interpreted with the aid of an FDA-approved computer-aided dectection system. Electronically Signed By: Chadwick Palencia MD 07/01/20 0814
== END ==
LOC: M WHC 17:29
PROVIDERS: ATTEND Family Medicine
DX: Z12.31 Encounter for screening mammogram for malignant neoplasm of breast (principal); Z85.9 Personal history of malignant neoplasm, unspecified; Z78.0 Asymptomatic menopausal state

== ENCOUNTER → 2020-10-08 | Outpatient (CLI) | payer MEDICARE, BC ==
--- NOTE | 2020-10-08 12:50 | REP ---
INDICATION: CHRONIC KIDNEY DISEASE, STAGE 3 (MODERATE). COMPARISON: CT of the abdomen including the lower lung alvarez dated 08/20/[address] of the chest dated 09/04/2019. TECHNIQUE: CT of the chest without IV contrast. FINDINGS: There is a 4 mm lung nodule in the left lower lobe on image 65 unchanged from both prior studies. There is a 2 mm lung nodule in the right lower lobe on image 70, unchanged from both prior studies. There is a 4 mm lung nodule posteriorly in the lingula near the major fissure on image 52, unchanged from 09/04/2019. This is not included in the images on the 08/20/[address] There are no other lung nodules or masses. There are no infiltrates or pleural effusions. There is no mediastinal or axillary lymph node enlargement. The study is insensitive for hilar lymph node enlargement in the absence of IV contrast. The unenhanced thoracic aorta is unremarkable. Cardiac size is normal. There is no pericardial effusion. The visualized unenhanced upper abdominal structures are unremarkable. There is no adrenal nodule. IMPRESSION: There are 3 small stable lung nodules as described, unchanged from 09/04/2019. Given the stability of these nodules these are likely benign nodules such as granulomas. If the patient is at risk for lung carcinoma I would recommend follow-up low-dose lung screening chest CT in 1 year for further evaluation. <Electronically signed by Dread Arrington > 10/08/20 [id number]
== END ==
LOC: M RAD 09:07
PROVIDERS: ATTEND Family Medicine
DX: N18.30 Chronic kidney disease, stage 3 unspecified (principal); R91.8 Other nonspecific abnormal finding of lung field

== ENCOUNTER → 2021-04-21 | Outpatient (REF) | payer MEDICARE, BC ==
[2021-04-21 14:40] LABS: HEMATOCRIT 39.5 % (36.0-47.0); HEMOGLOBIN 12.6 g/dl (12.0-15.5); MEAN CORPUSCULAR HGB CONC 31.9 g/dl (32.0-36.5); MEAN CORPUSCULAR VOLUME 97.3 fl (80.0-96.0); PLATELET COUNT, AUTOMATED 282 10^3/uL (150-450); RED BLOOD COUNT 4.06 10^6/uL (4.00-5.40); WHITE BLOOD COUNT 9.3 10^3/uL (4.0-10.0)
[2021-04-21 14:54] LABS: ALBUMIN 3.8 GM/DL (3.2-5.2); BILIRUBIN,TOTAL 0.6 MG/DL (0.2-1.0); CALCIUM LEVEL 9.8 MG/DL (8.8-10.2); CHOLESTEROL RISK RATIO 3.694 (<5); CREATININE FOR GFR 1.33 MG/DL (0.55-1.30); GLOMERULAR FILTRATION RATE 41.5 (>39); POTASSIUM SERUM 4.2 MEQ/L (3.5-5.1); TOTAL PROTEIN 6.9 GM/DL (6.4-8.2); URIC ACID 4.8 MG/DL (2.6-6.0)
== END ==
LOC: M PLALAB 10:34
PROVIDERS: ATTEND Family Medicine
DX: N18.30 Chronic kidney disease, stage 3 unspecified (principal); I13.10 Hypertensive heart and chronic kidney disease without heart failure, with stage 1 through stage 4 chronic kidney disease, or unspecified chronic kidney disease; E78.5 Hyperlipidemia, unspecified; M10.9 Gout, unspecified

== ENCOUNTER → 2021-04-29 | Outpatient (REF) | payer MEDICARE, BC ==
[2021-04-29 17:59] LABS: FOLATE > 24.0 NG/ML (>5.4); FREE T4 0.85 NG/DL (0.76-1.46); VITAMIN B12 LEVEL 542 PG/ML (247-911)
== END ==
LOC: M SFHCADAM 14:42
PROVIDERS: ATTEND Family Medicine
DX: R53.83 Other fatigue (principal)
CPT/HCPCS: 82607; 82746; 84439; 84443; G0463

== ENCOUNTER → 2021-06-16 | Outpatient (CLI) | payer MEDICARE, BC ==
--- NOTE | 2021-06-16 14:24 | REP ---
INDICATION: LUCHO SCR MAMMO/Z12.31. COMPARISON: Multiple TECHNIQUE: Digital screening mammography was carried out bilaterally in the CC and MLO projections using both 2D and 3D modalities and compared to the prior exams. By history, the patient has no complaints of a palpable breast abnormality or other significant breast complaints. FINDINGS: The breasts are unchanged in size and shape. Once again, dense heterogenous nodular fibroglandular elements are seen bilaterally in a stable appearing pattern but to such a degree that the sensitivity of the mammogram in detecting cancer is decreased. There are no shanna soft tissue densities or spiculated masses. There is no internal architectural distortion. Stable benign calcifications are again seen bilaterally. There is no skin thickening or nipple retraction. The Volpara volumetric breast density pattern is C. IMPRESSION: BIRADS/ACR category 2 benign findings. There is no evidence of malignant alteration of the breasts. This patient's Tyrer-Cuzick lifetime breast cancer risk assessment score is 3.1%. This mammogram was interpreted with the aid of an FDA-approved computer-aided detection system. The patient states she had a clinical breast exam in over a year. The patient letter being requested is M1. RECOMMENDATION: Repeat screening mammography recommended 1 year (for women over 40). <Electronically signed by Antwon Helton > 06/16/21 1519
--- NOTE | 2021-06-16 16:32 | DEXAMM ---
INDICATION: Z13.820 SCR FOR OSTEOPOROSIS. COMPARISON: 10/19/2010 as well as other prior exams. TECHNIQUE: Bone density was measured using dual-energy x-ray absorptiometry (DEXA). FINDINGS: AP SPINE L1-L4 BMD 0.993 g/cm2 Young Adult T-Score -1.6 Age Matched Z-Score 0.2. LT FEMUR, TOTAL BMD 0.828 g/cm2 Young Adult T-Score -1.4 Age Matched Z-Score 0.3. LT NECK BMD 0.766 g/cm2 Young Adult T-Score -2.0 Age Matched Z-Score -0.1. RT FEMUR, TOTAL BMD 0.847 g/cm2 Young Adult T-Score -1.3 Age Matched Z-Score 0.4. RT NECK BMD 0.761 g/cm2 Young Adult T-Score -2.0 Age Matched Z-Score -0.1. IMPRESSION: There is low bone density of the spine. There is low bone density of the left hip. There is low bone density of the right hip. The density of the spine has increased 6.5% since the initial exam on 03/13/2000. The density of the spine increased 3.9% since most recent exam on 10/19/2010. The density of the left hip has increased 4.7% since initial exam on 03/13/2000. The density of the left hip has increased 0.1% since most recent exam on 10/19/2010. The density of the right hip has increased 7.5% since the initial exam on 03/13/2000. The density of the right hip has increased 2.9% since the most recent exam on 10/19/2010. FOLLOW-UP: Recommendation for the next bone density exam: 2 years. <Electronically signed by Dread Padron > 06/16/21 [id number]
== END ==
LOC: M WHC 13:14
PROVIDERS: ATTEND Family Medicine
DX: Z12.31 Encounter for screening mammogram for malignant neoplasm of breast (principal); Z13.820 Encounter for screening for osteoporosis; M85.89 Other specified disorders of bone density and structure, multiple sites

== ENCOUNTER → 2021-07-10 | Outpatient (CLI) | payer MEDICARE, BC ==
[~2021-07-10] MED LIST changes: +BISO5TAB14 PO; +CETI10CH PO; +D3 M1CAP2 PO; +FAMO40TA3 PO; +FEBU40TA2 PO; +PANT40TA29 PO; +SPIR100T3 PO; +VITMTA PO
== END ==
LOC: M LABSMTC 11:22
PROVIDERS: ATTEND Anesthesiology
DX: Z01.818 Encounter for other preprocedural examination (principal); Z11.52 Encounter for screening for COVID-19

== ENCOUNTER 2021-07-15 07:43 | Day surgery (SDC) | payer MEDICARE, BC ==
[~2021-07-15] VITALS: Ht 154.9 cm; Wt 61.2 kg
[~2021-07-15 07:43] MED LIST changes: +LIDOCAINE 1% MDV 20ML VIAL SQ PRN; +LR 1,000 ML IV ONE
[2021-07-15] MEDS ORDERED: fentaNYL 100 MCG/2 ML INJECTION (J3010) As Ordered ONE (08:09)
[2021-07-15] MEDS ORDERED: SEVOFLURANE INHAL SOLN 250 ML BTL As Ordered ONE (08:10)
[2021-07-15] MEDS ORDERED: PROBCAP14 PO (08:45)
[2021-07-15] MEDS ORDERED: LIDOCAINE W/EPINEPHRINE 1% 20ML VIAL As Ordered ONE (09:19)
[2021-07-15] MEDS ORDERED: METHYLENE BLUE 0.5% (5MG/ML) 10 ML AMP (PROVAYBLUE) As Ordered ONE (09:19)
[2021-07-15] MEDS ORDERED: EPINEPHrine 1MG/ML INJ 30ML MD-VIAL As Ordered ONE (09:19)
[2021-07-15] MEDS ORDERED: ACETAMINOPHEN 1000MG 100ML IV BTL (OFIRMEV) (J0131 PER 10MG) As Ordered ONE (10:20)
[2021-07-15] MEDS ORDERED: LIDOCAINE 2% 100MG/5ML SDV (FOR ANES.) As Ordered ONE (10:21)
[2021-07-15] MEDS ORDERED: propofoL 200 MG/20 ML VIAL As Ordered ONE (10:21)
[2021-07-15] MEDS ORDERED: ROCURONIUM BROMIDE 50 MG/5 ML VIAL As Ordered ONE (10:21)
[2021-07-15] MEDS ORDERED: dexameTHASONE 4 MG/ML 1ML VIAL (J1100 PER 1MG) As Ordered ONE (10:22)
[2021-07-15] MEDS ORDERED: SUGAMMADEX SODIUM 500 MG/5 ML VIAL (BRIDION) As Ordered ONE (10:23)
[2021-07-15] MEDS ORDERED: ONDANSETRON 4MG/2ML VIAL As Ordered ONE (10:37)
[2021-07-15] MEDS ORDERED: ONDANSETRON 4MG/2ML VIAL IV PRN (11:10)
[2021-07-15] MEDS ORDERED: oxyCODONE 5MG TAB PO PRN (11:10)
[2021-07-15] MEDS ORDERED: fentaNYL 100 MCG/2 ML INJECTION (J3010) IV PRN (11:10)
[2021-07-15] MEDS ORDERED: LR 1,000 ML IV SCH ×2 (11:10→11:25)
[2021-07-15 12:18] VITALS: BP 144/65
[2021-07-15] MEDS ORDERED: LACRILUBE (AKWA TEARS) OPHTH OINT 3.5 GM As Ordered ONE (12:49)
--- NOTE | 2021-07-15 16:34 | RO ---
OPERATIVE NOTE DATE OF OPERATION: 07/15/2021 PREOPERATIVE DIAGNOSIS: Right nasolacrimal duct obstruction. POSTOPERATIVE DIAGNOSIS: Right nasolacrimal duct obstruction. PROCEDURE: Right endoscopic DCR. SURGEON: Alexis Sullivan MD PATCHER HELPER: ANESTHESIA: DESCRIPTION OF PROCEDURE: Under general anesthesia with the patient intubated, the patient was prepped and draped in usual manner. I used pledgets of Adrenalin 1:1000 and infiltrated with Lidocaine with Epinephrine. I made an incision anterior to the insertion of the inferior turbinate on the right side and then elevated superiorly and inferiorly toward the turbinate. I then removed this mucosa. Using a drill I drilled through the bone in this area and then I used also the rongeurs. Once this was done I exposed the area well. I identified the inferior canaliculus and then dilated up and then inserted a light pipe. I identified the sac inside the nose and then I made an incision over that and then opened up into the sac. I removed some of the medial part of the sac. I then put in a cannula and then after that the stent. The stent was placed in inferior canaliculus. I then identified the superior canaliculus and dilated that and inserted a cannula and then the stent. The stent was then brought into the nose and positioned in the medial portion of the canthus. Everything looked very good. I then put four clips adjoining the stent in the inferior and superior canaliculus and then removed the rest of the stent. The patient tolerated the procedure well. I suctioned the area. Less than 10 mL estimated blood loss. I put some Gelfoam over the area. The patient was extubated and transferred to the recovery room in excellent condition.
[2021-07-27] MEDS ORDERED: TOBRSUS8 OD (09:29)
[2021-07-27] MEDS ORDERED: AMOX500T2 PO (09:29)
== END 2021-07-15 12:32 | disposition home or self-care (01) ==
LOC: M SDC 07:43
PROVIDERS: ATTEND Otolaryngology
DX: H04.211 Epiphora due to excess lacrimation, right lacrimal gland (principal); H04.551 Acquired stenosis of right nasolacrimal duct; I10 Essential (primary) hypertension; M10.9 Gout, unspecified; K21.9 Gastro-esophageal reflux disease without esophagitis; E78.5 Hyperlipidemia, unspecified; Z88.1 Allergy status to other antibiotic agents; Z88.0 Allergy status to penicillin; Z88.2 Allergy status to sulfonamides; Z88.8 Allergy status to other drugs, medicaments and biological substances; Z79.82 Long term (current) use of aspirin; Z79.899 Other long term (current) drug therapy
CPT/HCPCS: 31239; C1726; J0131; J1100; J2405; J3010; Q9968

== ENCOUNTER 2021-07-28 07:27 | Day surgery (SDC) | payer MEDICARE, BC ==
[~2021-07-28] VITALS: Ht 154.9 cm; Wt 60.8 kg
[~2021-07-28 07:27] MED LIST changes: +ACETAMINOPHEN 1000MG 100ML IV BTL (OFIRMEV) (J0131 PER 10MG) As Ordered ONE; +AMOX500T2 PO; +EPINEPHrine 1MG/ML INJ 30ML MD-VIAL As Ordered ONE; -LIDOCAINE 1% MDV 20ML VIAL SQ PRN; +LIDOCAINE 2% 100MG/5ML SDV (FOR ANES.) As Ordered ONE; +LIDOCAINE W/EPINEPHRINE 1% 20ML VIAL As Ordered ONE; +METHYLENE BLUE 0.5% (5MG/ML) 10 ML AMP (PROVAYBLUE) As Ordered ONE; +MIDAZOLAM INJ 2MG/2ML VIAL (J2250 PER 1MG) As Ordered ONE; +ONDANSETRON 4MG/2ML VIAL As Ordered ONE; +PROBCAP14 PO; +ROCURONIUM BROMIDE 50 MG/5 ML VIAL As Ordered ONE; +TOBRSUS8 OD; +dexameTHASONE 4 MG/ML 1ML VIAL (J1100 PER 1MG) As Ordered ONE; +fentaNYL 250 MCG/5 ML INJECTION (J3010) As Ordered ONE; +propofoL 200 MG/20 ML VIAL As Ordered ONE
[2021-07-28] MEDS ORDERED: LIDOCAINE W/EPINEPHRINE 1% 20ML VIAL As Ordered ONE (07:46)
[2021-07-28] MEDS ORDERED: LACRILUBE (AKWA TEARS) OPHTH OINT 3.5 GM As Ordered ONE (08:13)
[2021-07-28] MEDS ORDERED: SUGAMMADEX SODIUM 500 MG/5 ML VIAL (BRIDION) As Ordered ONE (08:29)
[2021-07-28] MEDS ORDERED: LR 1,000 ML IV SCH ×2 (09:15)
[2021-07-28] MEDS ORDERED: fentaNYL 100 MCG/2 ML INJECTION (J3010) IV PRN (09:15)
[2021-07-28] MEDS ORDERED: oxyCODONE 5MG TAB PO PRN (09:15)
[2021-07-28] MEDS ORDERED: ONDANSETRON 4MG/2ML VIAL IV PRN (09:15)
[2021-07-28 09:32] VITALS: BP 150/77
--- NOTE | 2021-07-28 10:06 | RO ---
OPERATIVE NOTE DATE OF OPERATION: 07/28/2021 PREOPERATIVE DIAGNOSIS: Right nasolacrimal duct obstruction. POSTOPERATIVE DIAGNOSIS: Right nasolacrimal duct obstruction. PROCEDURE: Right endoscopic DCR. SURGEON: Alexis Sullivan MD PLUMBER PIPE FITTING: ANESTHESIA: INDICATIONS: The patient had a DCR two weeks ago. The stent came out and the patient is here for reinsertion of the stent. DESCRIPTION OF PROCEDURE: Under general anesthesia with the patient intubated, patient was draped in usual manner. I used pledgets of Adrenalin 1:1000. Once this was done I identified the inferior canaliculus. I put in a probe and then dilator. I then inserted a larger probe. Once this was done I entered into the nose. I inserted the stent in the inferior canaliculus and brought it out through the nose. The same procedure was performed on the superior canaliculus. The stent was brought into the nose from the superior canaliculus. Once this was done I put five alaina on the stents joining the superior and inferior canaliculus and then cut the lower part. There was minimal bleeding. The patient was extubated and transferred to recovery room in excellent condition. I did irrigate the eye with saline.
== END 2021-07-28 10:11 | disposition home or self-care (01) ==
LOC: M SDC 07:27
PROVIDERS: ATTEND Otolaryngology
DX: H04.551 Acquired stenosis of right nasolacrimal duct (principal); I10 Essential (primary) hypertension; K21.9 Gastro-esophageal reflux disease without esophagitis; E78.00 Pure hypercholesterolemia, unspecified; M35.00 Sjogren syndrome, unspecified; M19.90 Unspecified osteoarthritis, unspecified site; R06.83 Snoring; Z88.8 Allergy status to other drugs, medicaments and biological substances; Z88.1 Allergy status to other antibiotic agents; Z88.0 Allergy status to penicillin; Z88.2 Allergy status to sulfonamides; Z79.899 Other long term (current) drug therapy; Z79.2 Long term (current) use of antibiotics
CPT/HCPCS: 31239; J0131; J1100; J2250; J2405; J3010; Q9968; U0002

== ENCOUNTER → 2022-03-15 | Outpatient (CLI) | payer MEDICARE, BC ==
[~2022-03-15] MED LIST changes: -ACETAMINOPHEN 1000MG 100ML IV BTL (OFIRMEV) (J0131 PER 10MG) As Ordered ONE; -EPINEPHrine 1MG/ML INJ 30ML MD-VIAL As Ordered ONE; -LIDOCAINE 2% 100MG/5ML SDV (FOR ANES.) As Ordered ONE; -LIDOCAINE W/EPINEPHRINE 1% 20ML VIAL As Ordered ONE; -LR 1,000 ML IV ONE; -METHYLENE BLUE 0.5% (5MG/ML) 10 ML AMP (PROVAYBLUE) As Ordered ONE; -MIDAZOLAM INJ 2MG/2ML VIAL (J2250 PER 1MG) As Ordered ONE; -ONDANSETRON 4MG/2ML VIAL As Ordered ONE; -ROCURONIUM BROMIDE 50 MG/5 ML VIAL As Ordered ONE; -dexameTHASONE 4 MG/ML 1ML VIAL (J1100 PER 1MG) As Ordered ONE; -fentaNYL 250 MCG/5 ML INJECTION (J3010) As Ordered ONE; -propofoL 200 MG/20 ML VIAL As Ordered ONE
== END ==
LOC: M RAD 10:26
PROVIDERS: ATTEND Otolaryngology
DX: J32.4 Chronic pansinusitis (principal); H04.552 Acquired stenosis of left nasolacrimal duct

== ENCOUNTER → 2022-04-10 | Outpatient (CLI) | payer MEDICARE, BC | LOC: M LABSMTC 11:25 | PROVIDERS: ATTEND Anesthesiology | DX: Z01.812 Encounter for preprocedural laboratory examination (principal); Z20.822 Contact with and (suspected) exposure to COVID-19 ==

== ENCOUNTER 2022-04-13 11:27 | Day surgery (SDC) | payer MEDICARE, BC ==
[~2022-04-13] VITALS: Ht 154.9 cm; Wt 59.4 kg
[2022-04-13] MEDS ORDERED: LR 1,000 ML IV SCH ×3 (11:40→17:35)
[2022-04-13] MEDS ORDERED: LIDOCAINE 2% 100MG/5ML SDV (FOR ANES.) As Ordered ONE (13:13)
[2022-04-13] MEDS ORDERED: propofoL 200 MG/20 ML VIAL As Ordered ONE (13:13)
[2022-04-13] MEDS ORDERED: fentaNYL 100 MCG/2 ML INJECTION As Ordered ONE (13:13)
[2022-04-13] MEDS ORDERED: MIDAZOLAM INJ 2MG/2ML VIAL (J2250 PER 1MG) As Ordered ONE (13:13)
[2022-04-13] MEDS ORDERED: ROCURONIUM BROMIDE 50 MG/5 ML VIAL As Ordered ONE (13:13)
[2022-04-13] MEDS ORDERED: dexameTHASONE 4 MG/ML 1ML VIAL (J1100 PER 1MG) As Ordered ONE (13:13)
[2022-04-13] MEDS ORDERED: ONDANSETRON 4MG/2ML VIAL As Ordered ONE (13:16)
[2022-04-13] MEDS ORDERED: LIDOCAINE W/EPINEPHRINE 1% 20ML VIAL As Ordered ONE (14:34)
[2022-04-13] MEDS ORDERED: EPINEPHrine 1MG/ML INJ 30ML MD-VIAL As Ordered ONE (14:34)
[2022-04-13] MEDS ORDERED: METHYLENE BLUE 0.5% (5MG/ML) 10 ML AMP (PROVAYBLUE) As Ordered ONE (14:34)
[2022-04-13] MEDS ORDERED: ePHEDrine SULFATE 25 MG/5 ML(5MG/ML) SYRINGE As Ordered ONE (15:27)
[2022-04-13] MEDS ORDERED: ACETAMINOPHEN 1000MG 100ML IV BTL (OFIRMEV) (J0131 PER 10MG) As Ordered ONE (16:29)
[2022-04-13] MEDS ORDERED: SUGAMMADEX SODIUM 500 MG/5 ML VIAL (BRIDION) As Ordered ONE (16:53)
[2022-04-13] MEDS ORDERED: oxyCODONE 5MG TAB PO PRN (17:15)
[2022-04-13] MEDS ORDERED: HYDROMORPHONE HCL 0.5 MG/ 0.5 ML SYRINGE (J1170 PER 1) IV PRN (17:15)
[2022-04-13] MEDS ORDERED: ONDANSETRON 4MG/2ML VIAL IV PRN (17:15)
[2022-04-13] MEDS ORDERED: fentaNYL 100 MCG/2 ML INJECTION IV PRN (17:15)
[2022-04-13] MEDS ORDERED: ACETAMINOPH W/CODEINE #3 TAB UD PO PRN (17:35)
[2022-04-13 18:09] VITALS: BP 148/66
== END 2022-04-13 18:22 | disposition home or self-care (01) ==
LOC: M SDC 11:27
PROVIDERS: ATTEND Otolaryngology
DX: H04.552 Acquired stenosis of left nasolacrimal duct (principal); M95.0 Acquired deformity of nose; I10 Essential (primary) hypertension; E78.5 Hyperlipidemia, unspecified; M10.9 Gout, unspecified; M35.00 Sjogren syndrome, unspecified; K21.9 Gastro-esophageal reflux disease without esophagitis; Z88.0 Allergy status to penicillin; Z88.2 Allergy status to sulfonamides; Z88.8 Allergy status to other drugs, medicaments and biological substances; Z79.899 Other long term (current) drug therapy
CPT/HCPCS: 30465; 68815; 93005; J0131; J0171; J1100; J2250; J2405; J3010; Q9968

== ENCOUNTER → 2022-04-19 | Outpatient (CLI) | payer MEDICARE, BC ==
[2022-04-19 15:05] LABS: HEMATOCRIT 38.3 % (36.0-47.0); HEMOGLOBIN 12.5 g/dl (12.0-15.5); MEAN CORPUSCULAR HEMOGLOBIN 31.1 pg (27.0-33.0); MEAN CORPUSCULAR HGB CONC 32.6 g/dl (32.0-36.5); MEAN CORPUSCULAR VOLUME 95.3 fl (80.0-96.0); PLATELET COUNT, AUTOMATED 293 10^3/uL (150-450); RED BLOOD COUNT 4.02 10^6/uL (4.00-5.40); WHITE BLOOD COUNT 9.3 10^3/uL (4.0-10.0)
[2022-04-19 15:48] LABS: CREATININE FOR GFR 1.37 MG/DL (0.55-1.30); POTASSIUM SERUM 4.1 MEQ/L (3.5-5.1)
[2022-04-19 15:49] LABS: ALBUMIN 3.7 GM/DL (3.2-5.2); BILIRUBIN,TOTAL 0.8 MG/DL (0.2-1.0); CALCIUM LEVEL 10.4 MG/DL (8.8-10.2); CHOLESTEROL RISK RATIO 3.938 (<5); FREE T4 1.09 NG/DL (0.76-1.46); THYROID STIMULATING HORMONE 1.19 uIU/ML (0.358-3.740); TOTAL 25(OH) VITAMIN D 87.1 NG/ML (30.0-100.0); TOTAL PROTEIN 6.9 GM/DL (6.4-8.2)
== END ==
LOC: M PLALAB 10:14
PROVIDERS: ATTEND Family Medicine
DX: N18.30 Chronic kidney disease, stage 3 unspecified (principal); I11.9 Hypertensive heart disease without heart failure; E78.5 Hyperlipidemia, unspecified; R00.1 Bradycardia, unspecified; M85.80 Other specified disorders of bone density and structure, unspecified site

== ENCOUNTER → 2022-05-16 | Outpatient (CLI) | payer MEDICARE, BC | LOC: M WHC 12:59 | PROVIDERS: ATTEND Family Medicine | DX: N28.1 Cyst of kidney, acquired (principal) ==

== ENCOUNTER → 2022-06-20 | Outpatient (CLI) | payer MEDICARE, BC | LOC: M WHC 12:11 | PROVIDERS: ATTEND Family Medicine | DX: Z12.31 Encounter for screening mammogram for malignant neoplasm of breast (principal) ==

== ENCOUNTER 2022-10-13 10:03 | Emergency (ER) | payer MEDICARE, BC ==
[~2022-10-13] VITALS: Ht 154.9 cm; Wt 59.3 kg
[2022-10-13 11:13] LABS: BASO # 0.1 10^3/uL (0.0-0.2); BASO % 0.9 % (0.0-1.0); EOS # 0.2 10^3/uL (0.0-0.5); HEMATOCRIT 38.9 % (36.0-47.0); HEMOGLOBIN 12.6 g/dl (12.0-15.5); LYMPH # 1.4 10^3/uL (1.5-5.0); LYMPH % 14.6 % (24.0-44.0); MEAN CORPUSCULAR HGB CONC 32.4 g/dl (32.0-36.5); MEAN CORPUSCULAR VOLUME 95.6 fl (80.0-96.0); MONO # 0.5 10^3/uL (0.0-0.8); MONO % 5.5 % (2.0-8.0); NEUTROPHILS # 7.2 10^3/uL (1.5-8.5); NEUTROPHILS % 76.7 % (36.0-66.0); PLATELET COUNT, AUTOMATED 297 10^3/uL (150-450); RED BLOOD COUNT 4.07 10^6/uL (4.00-5.40); WHITE BLOOD COUNT 9.4 10^3/uL (4.0-10.0)
[2022-10-13 11:32] LABS: BILIRUBIN,DIRECT 0.2 MG/DL (<0.4)
[2022-10-13 11:33] LABS: ALBUMIN 3.7 G/DL (3.2-5.2); BILIRUBIN,TOTAL 0.7 MG/DL (0.3-1.2); CALCIUM LEVEL 10.2 MG/DL (8.3-10.6); CREATININE FOR GFR 1.33 MG/DL (0.55-1.30); GLOMERULAR FILTRATION RATE 41.4 (>39); POTASSIUM SERUM 4.1 MMOL/L (3.5-5.1)
[2022-10-13] MEDS ORDERED: ISOVUE-370 76% 100ML VIAL As Ordered ONE (13:53)
[2022-10-13] MEDS ORDERED: NS 1,000 ML IV ONE (14:30)
[2022-10-13 16:04] VITALS: BP 136/74
== END 2022-10-13 16:13 | disposition home or self-care (01) ==
LOC: M ED 10:03
DX: K57.30 Diverticulosis of large intestine without perforation or abscess without bleeding (principal); K44.9 Diaphragmatic hernia without obstruction or gangrene; R91.8 Other nonspecific abnormal finding of lung field; N28.1 Cyst of kidney, acquired; R79.89 Other specified abnormal findings of blood chemistry; Z86.19 Personal history of other infectious and parasitic diseases; K21.9 Gastro-esophageal reflux disease without esophagitis; E78.5 Hyperlipidemia, unspecified; Z79.899 Other long term (current) drug therapy; Z88.0 Allergy status to penicillin; Z88.2 Allergy status to sulfonamides; Z88.1 Allergy status to other antibiotic agents; Z88.8 Allergy status to other drugs, medicaments and biological substances
CPT/HCPCS: 71046; 74177; 76705; 80048; 80076; 83605; 83690; 85025; 93005; 96360; 99284; Q9967

== ENCOUNTER → 2023-04-24 | Outpatient (CLI) | payer MEDICARE, BC ==
[2023-04-24 13:49] LABS: URIC ACID 4.6 MG/DL (3.1-7.8)
[2023-04-24 13:51] LABS: HEMOGLOBIN A1c 5.2 % (4.0-6.0)
[2023-04-24 13:52] LABS: CALCIUM LEVEL 10.5 MG/DL (8.3-10.6); CHOLESTEROL RISK RATIO 3.47 (<5); CREATININE FOR GFR 1.29 MG/DL (0.55-1.30); GLOMERULAR FILTRATION RATE 42.8 (>39); HDL CHOLESTEROL 57.5 MG/DL (>40); LDL CHOLESTEROL 82.7 MG/DL (<100); NON-HDL-C 142.5 MG/DL; POTASSIUM SERUM 4.4 MMOL/L (3.5-5.1)
== END ==
LOC: M PLALAB 11:36
PROVIDERS: ATTEND Family Medicine
DX: I11.9 Hypertensive heart disease without heart failure (principal); E78.5 Hyperlipidemia, unspecified; Z13.1 Encounter for screening for diabetes mellitus; M10.9 Gout, unspecified

== ENCOUNTER → 2023-06-21 | Outpatient (CLI) | payer MEDICARE, BC | LOC: M WHC 13:44 | PROVIDERS: ATTEND Family Medicine | DX: Z12.31 Encounter for screening mammogram for malignant neoplasm of breast (principal) ==

== ENCOUNTER → 2023-07-12 | Outpatient (CLI) | payer MEDICARE, BC | LOC: M RAD 11:59 | PROVIDERS: ATTEND Surgery | DX: R10.84 Generalized abdominal pain (principal); R10.11 Right upper quadrant pain; R93.2 Abnormal findings on diagnostic imaging of liver and biliary tract | CPT/HCPCS: 78227; A9537 ==

== ENCOUNTER → 2023-08-02 | Outpatient (CLI) | payer MEDICARE, BC ==
[~2023-08-02] MED LIST changes: +E-Z-GAS II EFFERVESCENT PACKET (SODIUM BICARB./CITRIC ACID/SIMETHICONE) As Ordered ONE; +E-Z-HD 98% w/w 340GM SUSP BTL As Ordered ONE; +E-Z-PAQUE 96% w/w SUSP 176GM BTL As Ordered ONE
== END ==
LOC: M RAD 07:36
PROVIDERS: ATTEND Surgery
DX: R10.84 Generalized abdominal pain (principal); R10.11 Right upper quadrant pain

== ENCOUNTER 2023-09-08 07:25 | Day surgery (SDC) | payer MEDICARE, BC ==
[~2023-09-08] VITALS: Ht 154.9 cm; Wt 55.4 kg
[~2023-09-08 07:25] MED LIST changes: -E-Z-GAS II EFFERVESCENT PACKET (SODIUM BICARB./CITRIC ACID/SIMETHICONE) As Ordered ONE; -E-Z-HD 98% w/w 340GM SUSP BTL As Ordered ONE; -E-Z-PAQUE 96% w/w SUSP 176GM BTL As Ordered ONE; -FEBU40TA2 PO; +FEBU40TA6 PO; +SUCR1TAB56 PO; +ceFAZolin SOD 2 GM in IV 1 EA IV ONE
[2023-09-08] MEDS ORDERED: LR 1,000 ML IV SCH ×2 (08:00→10:40)
[2023-09-08] MEDS ORDERED: ONDANSETRON 4MG 2ML VIAL As Ordered ONE (08:44)
[2023-09-08] MEDS ORDERED: ROCURONIUM BROMIDE 50MG/5ML VIAL As Ordered ONE (08:44)
[2023-09-08] MEDS ORDERED: propofoL 200 MG/20 ML VIAL As Ordered ONE (08:44)
[2023-09-08] MEDS ORDERED: LIDOCAINE 2% 100MG/5ML SDV (FOR ANES.) As Ordered ONE (08:44)
[2023-09-08] MEDS ORDERED: fentaNYL 250 MCG/5 ML INJECTION As Ordered ONE (08:45)
[2023-09-08] MEDS ORDERED: MIDAZOLAM INJ 2MG/2ML VIAL As Ordered ONE (08:45)
[2023-09-08] MEDS ORDERED: SUGAMMADEX SODIUM 500 MG/5 ML VIAL (BRIDION) As Ordered ONE (10:26)
[2023-09-08] MEDS ORDERED: LACRILUBE (AKWA TEARS) OPHTH OINT 3.5GM As Ordered ONE (10:26)
[2023-09-08] MEDS ORDERED: SEVOFLURANE INHAL SOLN 250 ML BTL As Ordered ONE (10:26)
[2023-09-08] MEDS ORDERED: ACETAMINOPHEN 1000MG 100ML IV BAG As Ordered ONE (10:26)
[2023-09-08] MEDS ORDERED: KETOROLAC 60MG 2ML VIAL As Ordered ONE (10:27)
[2023-09-08] MEDS ORDERED: dexmedeTOMIDine (4MCG/ML)200MCG/50ML BTL (PRECEDEX) As Ordered ONE (10:35)
[2023-09-08] MEDS ORDERED: oxyCODONE 5MG TAB PO PRN (10:40)
[2023-09-08] MEDS ORDERED: HYDROMORPHONE HCL 0.5 MG/ 0.5 ML SYRINGE IV PRN (10:40)
[2023-09-08] MEDS ORDERED: fentaNYL 100 MCG/2 ML INJECTION IV PRN (10:40)
[2023-09-08] MEDS ORDERED: ONDANSETRON 4MG 2ML VIAL IV PRN (10:40)
[2023-09-08] MEDS ORDERED: traMADol 50 MG TAB PO PRN (11:25)
[2023-09-08 12:02] VITALS: BP 136/62; TEMP 97.4; O2SAT 100
[2023-09-08] MEDS ORDERED: NS 1,000 ML IV SCH (13:00)
== END 2023-09-08 12:24 | disposition home or self-care (01) ==
LOC: M SDC 07:25
PROVIDERS: ATTEND Surgery
DX: K81.1 Chronic cholecystitis (principal); I10 Essential (primary) hypertension; E78.00 Pure hypercholesterolemia, unspecified; M10.9 Gout, unspecified; M35.00 Sjogren syndrome, unspecified; Z88.0 Allergy status to penicillin; Z88.2 Allergy status to sulfonamides; Z88.1 Allergy status to other antibiotic agents; Z88.8 Allergy status to other drugs, medicaments and biological substances
CPT/HCPCS: 47562; 88304; 93005; J0131; J0665; J1100; J1885; J2250; J2405; J3010

== ENCOUNTER → 2023-09-27 | Outpatient (REF) | payer MEDICARE, BC ==
[~2023-09-27] MED LIST changes: -ceFAZolin SOD 2 GM in IV 1 EA IV ONE
== END ==
LOC: M PLALAB 13:40
PROVIDERS: ATTEND Obstetrics & Gynecology
DX: N89.8 Other specified noninflammatory disorders of vagina (principal)

== ENCOUNTER → 2024-02-09 | Outpatient (REF) | payer MEDICARE, BC ==
[~2024-02-09] MED LIST changes: -BIOT50004 PO; +BIOT5CAP8 PO
[2024-02-09 17:24] LABS: APPEARANCE, URINE CLEAR (CLEAR); BACTERIA, URINE AUTO NEGATIVE (NEGATIVE); BILIRUBIN, URINE AUTO NEGATIVE (NEGATIVE); BLOOD, URINE BLOOD NEGATIVE (NEGATIVE); COLOR, URINE STRAW (YELLOW); GLUCOSE, URINE (UA) AUTO NEGATIVE (NEGATIVE); KETONE, URINE AUTO NEGATIVE (NEGATIVE); LEUKOCYTE ESTERASE, URINE AUTO NEGATIVE (NEGATIVE); NITRITE, URINE AUTO NEGATIVE (NEGATIVE); PROTEIN, URINE AUTO NEGATIVE (NEGATIVE); RBC, URINE AUTO 0 /HPF (0-3); SQUAMOUS EPITHELIAL CELL UR AU 0 /HPF (0-6); UROBILINOGEN, URINE AUTO 0.2 mg/dL (0.0-2.0); WBC, URINE AUTO 0 /HPF (0-3)
[2024-02-09 17:37] LABS: HEMOGLOBIN A1c 4.9 % (4.0-6.0)
[2024-02-09 17:39] LABS: MAGNESIUM LEVEL 1.9 MG/DL (1.8-2.4)
[2024-02-09 17:43] LABS: THYROID STIMULATING HORMONE 2.182 uIU/ML (0.55-4.78)
[2024-02-09 17:44] LABS: FREE T4 0.94 NG/DL (0.89-1.76)
== END ==
LOC: M SFHCADAM 10:26
PROVIDERS: ATTEND Family Medicine
DX: N28.1 Cyst of kidney, acquired (principal); R10.9 Unspecified abdominal pain; R00.2 Palpitations; Z13.1 Encounter for screening for diabetes mellitus

== ENCOUNTER → 2024-02-16 | Outpatient (REF) | payer MEDICARE, BC ==
[2024-02-16 14:23] LABS: CALCIUM LEVEL 10.5 MG/DL (8.3-10.6); CREATININE FOR GFR 1.39 MG/DL (0.55-1.30); GLOMERULAR FILTRATION RATE 39.1 (>39); POTASSIUM SERUM 4.5 MMOL/L (3.5-5.1)
== END ==
LOC: M SFHCADAM 10:59
PROVIDERS: ATTEND Family Medicine
DX: N18.31 Chronic kidney disease, stage 3a (principal)

== ENCOUNTER → 2024-02-21 | Outpatient (CLI) | payer MEDICARE, BC | LOC: M PLAIMG 12:47 | PROVIDERS: ATTEND Family Medicine | DX: N28.1 Cyst of kidney, acquired (principal); R91.1 Solitary pulmonary nodule; K44.9 Diaphragmatic hernia without obstruction or gangrene; K57.90 Diverticulosis of intestine, part unspecified, without perforation or abscess without bleeding; K42.9 Umbilical hernia without obstruction or gangrene ==

== ENCOUNTER → 2024-03-12 | Outpatient (REF) | payer MEDICARE, BC ==
[2024-03-12 13:56] LABS: CHOLESTEROL RISK RATIO 3.31 (<5); HDL CHOLESTEROL 64.5 MG/DL (>40); LDL CHOLESTEROL 109.7 MG/DL (<100); NON-HDL-C 149.5 MG/DL
== END ==
LOC: M SFHCADAM 10:09
PROVIDERS: ATTEND Family Medicine
DX: E78.5 Hyperlipidemia, unspecified (principal)

== ENCOUNTER → 2024-07-09 | Outpatient (CLI) | payer MEDICARE, BC | LOC: M WHC 13:08 | PROVIDERS: ATTEND Family Medicine | DX: R92.2 Inconclusive mammogram (principal); R92.8 Other abnormal and inconclusive findings on diagnostic imaging of breast ==

== ENCOUNTER → 2024-07-17 | Outpatient (CLI) | payer MEDICARE, BC | LOC: M WHC 13:05 | PROVIDERS: ATTEND Family Medicine | DX: R92.2 Inconclusive mammogram (principal) | CPT/HCPCS: 76642; 77065; G0279 ==

== ENCOUNTER → 2025-03-13 | Outpatient (CLI) | payer MEDICARE, BC ==
[2025-03-13 14:45] LABS: HEMOGLOBIN 12.2 g/dl (12.0-15.5); MEAN CORPUSCULAR HEMOGLOBIN 31.7 pg (27.0-33.0); MEAN CORPUSCULAR VOLUME 96.1 fl (80.0-96.0); PLATELET COUNT, AUTOMATED 316 10^3/uL (150-450); RED BLOOD COUNT 3.85 10^6/uL (4.00-5.40)
[2025-03-13 14:47] LABS: ALBUMIN 3.9 G/DL (3.2-5.2); BILIRUBIN,TOTAL 0.5 MG/DL (0.3-1.2); CHOLESTEROL RISK RATIO 3.2 (<5); CREATININE FOR GFR 1.15 MG/DL (0.55-1.30); GLOMERULAR FILTRATION RATE 48.8 (>39); HDL CHOLESTEROL 60.5 MG/DL (>40); LDL CHOLESTEROL 95.5 MG/DL (<100); NON-HDL-C 133.5 MG/DL; POTASSIUM SERUM 4.4 MMOL/L (3.5-5.1); TOTAL PROTEIN 6.9 G/DL (5.7-8.2)
[2025-03-13 14:52] LABS: TOTAL 25(OH) VITAMIN D 56.4 NG/ML (20.0-100.0)
[2025-03-13 15:29] LABS: HEMOGLOBIN A1c 5.2 % (4.0-6.0)
== END ==
LOC: M PLALAB 10:11
PROVIDERS: ATTEND Family Medicine
DX: N28.1 Cyst of kidney, acquired (principal); R10.9 Unspecified abdominal pain; E78.00 Pure hypercholesterolemia, unspecified

== ENCOUNTER → 2025-07-18 | Outpatient (CLI) | payer MEDICARE, BC ==
[~2025-07-18] MED LIST changes: -VITA100T14 PO; +VITA100T69 PO
== END ==
LOC: M WHC 13:25
PROVIDERS: ATTEND Family Medicine
DX: Z12.31 Encounter for screening mammogram for malignant neoplasm of breast (principal); R92.333 Mammographic heterogeneous density, bilateral breasts

== ENCOUNTER → 2025-08-28 | Outpatient (REF) | payer MEDICARE, BC ==
[2025-08-28 14:07] LABS: PLATELET COUNT, AUTOMATED 307 10^3/uL (150-450)
[2025-08-28 14:32] LABS: ALT/SGPT 23.0 U/L (7.0-40); AST/SGOT 22.0 U/L (<34); CALCIUM LEVEL 10.8 MG/DL (8.3-10.6); CARBON DIOXIDE LEVEL 26.0 MMOL/L (20-31); CHLORIDE LEVEL 104.0 MMOL/L (98-107); CHOLESTEROL LEVEL 207.0 MG/DL (<200); CHOLESTEROL RISK RATIO 3.15 (<5); CREATININE FOR GFR 1.24 MG/DL (0.55-1.30); GLOMERULAR FILTRATION RATE 44.5 (>39); LDL CHOLESTEROL 96.5 MG/DL (<100); NON-HDL-C 141.3 MG/DL; POTASSIUM SERUM 4.6 MMOL/L (3.5-5.1); SODIUM LEVEL 141.0 MMOL/L (136-145); TRIGLYCERIDES LEVEL 224.0 MG/DL (<150)
== END ==
LOC: M SFHCADAM 10:28
PROVIDERS: ATTEND Family Medicine
DX: Z01.818 Encounter for other preprocedural examination (principal); N18.31 Chronic kidney disease, stage 3a; I11.9 Hypertensive heart disease without heart failure; K76.0 Fatty (change of) liver, not elsewhere classified; E78.5 Hyperlipidemia, unspecified

== ENCOUNTER → 2025-10-21 | Outpatient (REF) | payer MEDICARE, BC ==
[2025-10-21 17:26] LABS: ALT/SGPT 22.0 U/L (7.0-40); AST/SGOT 22.0 U/L (<34); CALCIUM LEVEL 10.5 MG/DL (8.3-10.6); CARBON DIOXIDE LEVEL 27.0 MMOL/L (20-31); CHLORIDE LEVEL 97.0 MMOL/L (98-107); CHOLESTEROL LEVEL 187.0 MG/DL (<200); CHOLESTEROL RISK RATIO 2.96 (<5); CREATININE FOR GFR 1.26 MG/DL (0.55-1.30); GLOMERULAR FILTRATION RATE 43.7 (>39); LDL CHOLESTEROL 76.3 MG/DL (<100); NON-HDL-C 123.9 MG/DL; POTASSIUM SERUM 4.3 MMOL/L (3.5-5.1); SODIUM LEVEL 134.0 MMOL/L (136-145); TRIGLYCERIDES LEVEL 238.0 MG/DL (<150)
[2025-10-21 17:30] LABS: PLATELET COUNT, AUTOMATED 446 10^3/uL (150-450)
[2025-10-21 17:31] LABS: FREE T4 1.26 NG/DL (0.89-1.76)
[2025-10-21 18:49] LABS: ESTIMATED AVERAGE GLUCOSE 100.0 MG/DL (60-110)
== END ==
LOC: M SFHCADAM 11:48
PROVIDERS: ATTEND Family Medicine
DX: F41.9 Anxiety disorder, unspecified (principal); E78.5 Hyperlipidemia, unspecified; I12.9 Hypertensive chronic kidney disease with stage 1 through stage 4 chronic kidney disease, or unspecified chronic kidney disease; N18.31 Chronic kidney disease, stage 3a; Z13.1 Encounter for screening for diabetes mellitus